=== PATIENT | male | born 1985 | race Caucasian/White ===

== ENCOUNTER 2024-12-24 13:56 | Outpatient (CLI) | payer OTHER, SELFPAY ==
--- OUTSIDE RECORDS SUMMARY | 1999-04-30 19:00 | XMS_ITS | Continuity of Care Document ---
Author Organization [facility] Address [address] [place] [address] Phone Care Team Providers Care Head Kiln Operator Name Role Phone No Information Unavailable Unavailable Medications Medication Instructions Dosage Effective Dates (start - stop) Status Comments No Drug Therapy Prescribed Advance Directives Directive Yes / No Effective Date File Name No Information Encounters Encounter Description Practice Location Reason(s) For Visit Diagnoses Date Provider Providers Copied on Encounter [facility], [address] [place] [address], [id number], [place] tel:[phone] No Information No Information Family History Family Member Type Diagnosis Age At Onset No Information Payers Payer name Insurance type Covered democrat ID Authoriza tion(s) No Information Social History Type Description Quantity Date Captured Comments Sex Male Smoking Status No Information Chief Complaint And Reason For Visit No Information History Of Present Illness Encounter Date Complaint History Of Prese nt Illness No Information Medications Administered Medication Instructions Dosage Effective Dates (start - stop) Status Comments No Drug Therapy Prescribed Instructions Date Instruction Additional Infor mation No Information Assessments Type Assessment Date No Information
--- NOTE | ~2024-12-24 | SEMFERTCOM_PTH ---
PATIENT: Quentin Snell LOC: [facility] U#:[id number] AGE/SX: 39/M ROOM: RE12/24/[address]: Meng Santos M.D. : 1985 BED: DIS: 12/24/2024 SPEC #: [id number] RECD: 12/24/24 14:08 STATUS: SOUT REQ #: [id number] HARDY: SUBM DR: Meng Santos DEPT: [facility] [place] RECD BY: Marija Ash MLT, ([facility]) ENTERED: 12/24/24 14:09 SP TYPE: Med Cecy [place] DR: Adrian Simon MD Procedures: PAP Stain
[2024-12-24 14:07] LABS: Post Vasectomy Sperm Presence None Seen (None Seen)
== END 2024-12-24 13:57 | disposition home or self-care (01) ==
PROVIDERS: PCP Family Medicine; Visit Provider Family Medicine
DX: Z30.09 Encounter for other general counseling and advice on contraception (principal)
CPT/HCPCS: 88160; 89321